=== PATIENT | male | born 1995 | race Caucasian/White ===

== ENCOUNTER 2018-03-26 17:47 | Emergency (ER) | payer OTHER ==
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
[2018-03-26 18:27] VITALS: BP 109/81
== END 2018-03-26 18:32 | disposition home or self-care (01) ==
LOC: ER 18:09
DX: S70.01XA Contusion of right hip, initial encounter (principal); S16.1XXA Strain of muscle, fascia and tendon at neck level, initial encounter; V43.52XA Car driver injured in collision with other type car in traffic accident, initial encounter
CPT/HCPCS: 99282